=== PATIENT | male | born 1980 | race Hispanic/Latino ===

== ENCOUNTER 2019-01-08 12:36 | Emergency (ER) | payer SELFPAY ==
[2019-01-08] MEDS ORDERED: methylPREDNISolone Sod Succ/PF 125 MG/2 ML VIAL ONE (12:39)
[2019-01-08] MEDS ORDERED: EPINEPHrine 1 MG/ML AMP ONE (12:39)
[2019-01-08] MEDS ORDERED: Famotidine/PF 20 mg/2ml Vial ONE (12:39)
== END 2019-01-08 16:57 | disposition home or self-care (01) ==
LOC: ERS 12:36
DX: T63.461A Toxic effect of venom of wasps, accidental (unintentional), initial encounter (principal); L50.0 Allergic urticaria
CPT/HCPCS: 96361; 96372; 96374; 96375; J0171; J2930; S0028